=== PATIENT | female | born 1950 | race Caucasian/White ===

== ENCOUNTER → 2017-05-18 | Outpatient (CLI) | payer MEDICARE ==
[~2017-05-18] MED LIST: CYCL-259 PO; DIPH25CA61 PO; GARL1TAB2 PO; HYDR-3240 PO; IBUP200C5 PO; MULT-516 PO; OMEG300C PO; ONDA4TAB13 SL; OXYC1TAB7 PO; PSYLLIUM PO; SENN-31 PO
== END | disposition home or self-care (01) ==
LOC: CFH 07:12
PROVIDERS: ATTEND Orthopaedic Surgery
DX: S83.231A Complex tear of medial meniscus, current injury, right knee, initial encounter (principal); M17.11 Unilateral primary osteoarthritis, right knee; M25.461 Effusion, right knee; X58.XXXA Exposure to other specified factors, initial encounter; Y93.89 Activity, other specified; Y92.89 Other specified places as the place of occurrence of the external cause; Y99.8 Other external cause status

== ENCOUNTER → 2017-07-09 | Outpatient (CLI) | payer MEDICARE | LOC: CFH 10:41 | PROVIDERS: ATTEND Nurse Practitioner Family | DX: Z13.820 Encounter for screening for osteoporosis (principal); Z12.31 Encounter for screening mammogram for malignant neoplasm of breast; M85.80 Other specified disorders of bone density and structure, unspecified site; Z78.0 Asymptomatic menopausal state | CPT/HCPCS: 77080; 77067 ==

== ENCOUNTER 2018-05-27 09:10 | Outpatient (CLI) | payer MEDICARE ==
[~2018-05-27 09:10] MED LIST changes: +IBUP-1623 PO; -IBUP200C5 PO
[2018-05-27] MEDS ORDERED: GADOBUTROL 7.5 MMOL/7.5 ML PFS ONE (10:49)
== END 2018-05-27 23:59 | disposition home or self-care (01) ==
LOC: CFH 09:10
PROVIDERS: ATTEND Neurological Surgery
DX: M48.07 Spinal stenosis, lumbosacral region (principal); M51.37 Other intervertebral disc degeneration, lumbosacral region; M48.062 Spinal stenosis, lumbar region with neurogenic claudication; M40.46 Postural lordosis, lumbar region; Z85.41 Personal history of malignant neoplasm of cervix uteri; M43.26 Fusion of spine, lumbar region; Z72.89 Other problems related to lifestyle; F12.10 Cannabis abuse, uncomplicated
CPT/HCPCS: 72158; 82565; A9585

== ENCOUNTER 2019-01-30 08:18 | Outpatient (CLI) | payer MEDICARE ==
[2019-01-30 09:39] LABS: BASOPHILS # (AUTO) 0.03 x10^3/uL (0-0.1); BASOPHILS % (AUTO) 1 % (0-1); EOSINOPHILS # (AUTO) 0.04 x10^3/uL (0-0.4); EOSINOPHILS % (AUTO) 1 % (1-7); LYMPHOCYTES # (AUTO) 0.91 x10^3/uL (1-3.4); LYMPHOCYTES % (AUTO) 23 % (22-44); MD NO; MEAN CORPUSCULAR HEMOGLOBIN 32.3 pg (27.0-34.8); MEAN CORPUSCULAR VOLUME 94.8 fL (80-100); MEAN PLATELET VOLUME 7.4 fL (7.4-10.4); MONOCYTES # (AUTO) 0.43 x10^3/uL (0.2-0.8); MONOCYTES % (AUTO) 11 % (2-9); NEUTROPHILS # (AUTO) 2.57 x10^3/uL (1.8-6.8); NEUTROPHILS % (AUTO) 65 % (42-75); PLATELET COUNT 293 x10^3/uL (130-400); RED BLOOD COUNT 4.76 x10^6/uL (3.82-5.3); RED CELL DISTRIBUTION WIDTH 13.9 % (9.6-15.2)
[2019-01-30 09:45] LABS: MICROSCOPIC NOT IND
[2019-01-30 09:48] LABS: CULTURE INDICATED? NO
[2019-01-30 09:49] LABS: ANION GAP 4 mmol/L (5-15); C-REACTIVE PROTEIN, QUANT 0.06 mg/dL (0.02-0.49); CALCIUM 9.2 mg/dL (8.5-10.1); CHLORIDE 104 mmol/L (98-107); CREATININE 0.64 mg/dL (0.55-1.02)
[2019-01-30] MEDS ORDERED: GABA300C10 PO (09:49)
[2019-01-30] MEDS ORDERED: IBUP-1623 PO (09:49)
[2019-01-30] MEDS ORDERED: METH500T97 PO (09:49)
[2019-01-30 09:53] LABS: INTERNATIONAL NORMALIZED RATIO 0.92 (0.93-1.1); PROTHROMBIN TIME 9.7 Seconds (9.6-11.5)
[2019-01-30 09:54] LABS: HCT (SEDRATE) 45.1 % (34.6-47.8)
[2019-02-08] MEDS ORDERED: OXYC-302 PO (10:37)
[2019-02-08] MEDS ORDERED: ONDA4TAB7 PO (10:38)
== END 2019-01-30 23:59 | disposition home or self-care (01) ==
LOC: STAR 08:18
PROVIDERS: ATTEND Neurological Surgery
DX: Z01.818 Encounter for other preprocedural examination (principal); M48.062 Spinal stenosis, lumbar region with neurogenic claudication; R79.1 Abnormal coagulation profile
CPT/HCPCS: 36415; 71046; 80048; 81003; 85025; 85610; 85651; 85730; 86140; 93005